=== PATIENT | male | born 1995 | race Caucasian/White ===

== ENCOUNTER 2016-12-01 01:40 | Emergency (ER) | payer SELFPAY ==
[~2016-12-01] VITALS: Ht 180.3 cm; Wt 97.5 kg
[2016-12-01 01:48] VITALS: BP 154/60
--- NOTE | 2016-12-01 02:09 | NUR ---
AMBULATED TO ER BED 4
--- NOTE | 2016-12-01 02:17 | NUR ---
Patient being evaluated by physician at bedside.
[2016-12-01 02:32] VITALS: BP 139/73
--- NOTE | 2016-12-01 02:32 | NUR ---
Patient discharged with v/s stable. Written and verbal after care instructions given and explained. Patient alert, oriented and verbalized understanding of instructions. Ambulatory with steady gait. All questions addressed prior to discharge. ID band removed. Patient advised to follow up with PMD IN 2 DAYS OR RETURN TO ER IF CONDITION WORSENS. Rx of MOTRIN, BACTRIM AND KEFLEX given. Patient educated on indication of medication including possible reaction and side effects. Opportunity to ask questions provided and answered.
== END 2016-12-01 02:32 | disposition home or self-care (01) ==
LOC: MED 01:40
DX: L03.114 Cellulitis of left upper limb (principal); Z90.89 Acquired absence of other organs